=== PATIENT | male | born 1940 | race Two or more races ===

== ENCOUNTER 2024-10-22 11:00 | Outpatient (RCR) | payer MEDICAID, SELFPAY ==
--- NOTE | 2024-10-16 11:12 | PT.OIERPT ---
PT OP Initial Eval Patient Information Outpatient Physical Therapy Treatment Date: 10/16/24 Visit Reasons: Pain in left shoulder Medical Diagnosis: M25.512 Treatment Dx #1: L shoulder pain Treatment Dx #2: Dec L shoulder ROM Start of Care: 10/16/24 Date of Onset: 1 yr ago Smoking Status Smoking Status: Never smoker Initial Assessment Subjective: Pt is 83 yr old frisian speaking male brought by his son for L shoulder pain that started with a series of CVA's last year. He went to [facility] and then back to [facility] for the second one. Since then he hasn't been able to lift or raise the L shoulder very high. 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 He hasn't been able to move the L shoulder enough since the CVA's to keep it from freezing. He may benefit from skilled therapy to improve ROM but gains will likely be limited and he has poor rehab potential due to pain involved and L hemiplegia. Short Term and Care Home Goals 1. Ind with HEP 2. Improved AROM into FF to at least 110 deg and abduction 110 deg, ER to 45 deg 3. Pt will reach [place] x10 with <=4/10 pain Treatment Plan 1. Manual therapy ? 2. Therex ? 3. Modalities as indicated, moist heat pack, ice, electrical stimulation Frequency and Duration: 1-2x a week for 5 visits then reassess Certification Dates: 10/16/24 to 01/13/25 Procedure Charges OP PT Eval Mod Complex 30 minutes: Yes
== END 2024-10-24 23:59 | disposition home or self-care (01) ==
LOC: CPTX 11:00
PROVIDERS: PCP Family Medicine; Referring Provider Family Medicine; Visit Provider Family Medicine
DX: M25.512 Pain in left shoulder (principal); Z86.73 Personal history of transient ischemic attack (TIA), and cerebral infarction without residual deficits
CPT/HCPCS: 97110; 97162

== ENCOUNTER 2024-11-18 09:30 | Outpatient (RCR) | payer MEDICAID, SELFPAY ==
--- NOTE | 2024-11-11 11:32 | PT.ODAYNRPT ---
PT Outpatient Daily Note OP Daily Note Outpatient Physical Therapy Treatment Date: 11/11/24 Visit Reasons: pain in left shoulder Subjective: A little less shoulder pain since last visit in L shoulder Objective: See f/S for therex Assessment: Limited ROM of L shoulder with AAROM into abduction to under 90 deg but has improved since the evaluation Plan: Improve L shoulder ROM Length of Time (minutes) of Treatment: 30 Minutes Procedure Charges Therapeutic Exercise 30 minutes: Yes
--- NOTE | 2024-11-18 09:58 | PT.ODAYNRPT ---
PT Outpatient Daily Note OP Daily Note Outpatient Physical Therapy Treatment Date: 11/18/24 Visit Reasons: pain in left shoulder Subjective: A little less shoulder pain since last visit in L shoulder but it pulls with the stretches here Objective: See f/S for therex Assessment: Limited ROM of L shoulder with AAROM into abduction to under 90 deg but has improved since the evaluation. Pt is a high fall risk and was encouraged to use a cane or walker to ambulate. Plan: Improve L shoulder ROM Procedure Charges Therapeutic Exercise 30 minutes: Yes
--- NOTE | 2024-12-11 18:20 | PT.ODS1RPT ---
PT OP Progress/Discharge Note Date of Service: 12/11/24 Progress Note/DC Note Progress Note/Discharge Note: DC Note Patient Information Visit Reasons: pain in left shoulder Service Continue Service or Discharge: Discharge Discharge Date: 12/11/24 Status Assessment: Pt attended the initial evaluation and 3 Rx visits and canceled on 12/11 and auth expires on 12/14. Pt will need another authorization if he wants to return to therapy. Thank you for your referrals. Plan: D/C
== END 2024-11-21 23:59 | disposition home or self-care (01) ==
LOC: CPTX 09:30
PROVIDERS: PCP Family Medicine; Referring Provider Family Medicine; Visit Provider Family Medicine
DX: M25.512 Pain in left shoulder (principal); Z86.73 Personal history of transient ischemic attack (TIA), and cerebral infarction without residual deficits
CPT/HCPCS: 97110